=== PATIENT | female | born 1980 | race Caucasian/White ===

== ENCOUNTER 2019-09-03 11:40 | Outpatient (CLI) | payer BC, SELFPAY ==
[2019-09-03 13:46] LABS: Hepatitis B Surface Antigen Negative (Negative)
[2019-09-03 13:52] LABS: HAV RESULT Negative (Negative); Hepatitis B Core IgM Result Negative (Negative)
[2019-09-03 14:03] LABS: Hepatitis C Virus Antibody Negative (Negative)
== END 2019-09-03 11:41 | disposition home or self-care (01) ==
LOC: ANHLAB 11:41
PROVIDERS: PCP Family Medicine; Visit Provider Family Medicine
DX: R94.5 Abnormal results of liver function studies (principal)
CPT/HCPCS: 36415; 80074

== ENCOUNTER 2020-02-17 14:44 | Emergency (ER) | payer BC, SELFPAY ==
--- NOTE | ~2020-02-17 | CT_ITS ---
EXAMINATION: CT abdomen pelvis w con INDICATION: Right lower quadrant pain TECHNIQUE: Computed tomographic images of the abdomen and pelvis were obtained after the administrati on of 100 cc of Omnipaque 350 intravenous contrast. The dose-length product (DLP) was 1273.06 mGy-cm. Automated exposure control and iterative reconstruction technique were employed. COMPARISON: 12/11/2014 FINDINGS: Minimal dependent atelectasis is present in the lung bases. The heart size is normal. The g allbladder is surgically absent. There is mild enlargement of the common bile duct and central intrah epatic ducts which is likely due to post cholecystectomy state. Nonobstructing stones of the left kid [place] measure up to 3 mm. The right kidney is unremarkable. No pathologically enlarged abdominal or pel apple lymph nodes are identified. There is no free intraperitoneal gas or evidence of bowel obstruction . The appendix is normal. There are changes of supracervical hysterectomy. There is mild lumbar spond ylosis. IMPRESSION: 1. No CT correlate for the patient's symptoms. Reviewed, dictated and finalized at location A. [facility]
[2020-02-17 15:16] VITALS: BP 125/82; PULSE 83; RESP 16; TEMP 36.2; O2SAT 97
[2020-02-17 15:26] LABS: Basophils Percent Auto 0.5 % (0.2-1.2); Eosinophils Absolute Auto 0.1 K/mm3 (0-0.3); Eosinophils Percent Auto 1.1 % (0-4.4); Hematocrit 38.4 % (37.0-47.0); Hemoglobin 12.8 g/dL (12.0-15.0); Immature Granulocyte Absolute 0.01 K/mm3 (0.00-0.031); Immature Granulocyte Percent A 0.2 % (0-0.5); Lymphocytes Absolute Auto 2.03 K/mm3 (0.9-3.2); Lymphocytes Percent Auto 31.9 % (18.3-44.2); Mean Corpuscular HGB Conc 33.3 g/dl (32-36); Mean Corpuscular Hemoglobin 29.6 pg (26-34); Mean Corpuscular Volume 88.7 fl (80-100); Mean Platelet Volume 10.3 fl (7.4-10.4); Monocytes Absolute Auto 0.4 K/mm3 (0.1-0.6); Neutrophils Absolute Auto 3.8 K/mm3 (1.3-6.7); Neutrophils Percent Auto 60.3 % (45.5-73.1); Platelet Count Result 216 k/mm3 (150-375); Red Blood Count 4.33 M/mm3 (4.2-5.4); Red Cell Distribution Width 12.5 % (11.5-14.5); White Blood Count 6.4 K/mm3 (4.5-10.0)
[2020-02-17 15:49] LABS: Alanine Aminotransferase 24 U/L (4-35); Alkaline Phosphatase 72 U/L (38-126); Anion Gap 4 mmol/L (8-16); Aspartate Amino Transferase 33 U/L (14-36); Bilirubin,Total 0.4 mg/dL (0.2-1.3); Blood Urea Nitrogen 11 mg/dL (7-17); Calcium 9.4 mg/dL (8.4-10.2); Carbon Dioxide 29 mmol/L (22-30); Chloride 107 mmol/L (98-107); Estimated CRCL calculation 89 ml/min; Estimated Glomerular Filt Rate > 60; Glucose 108 mg/dL (65-105); Lipase 49 U/L (23-300); Potassium 3.8 mmol/L (3.4-5.0); Sodium 140 mmol/L (137-145)
--- NOTE | 2020-02-17 16:15 | ED.ABDPAIN ---
HPI - Abdominal Pain General Chief Complaint: Abdominal Pain Stated Complaint: lower abd pain Time Seen by Provider: 02/17/20 16:15 Source: patient Mode of arrival: ambulatory Limitations: no limitations History of Present Illness HPI narrative: Patient is a 39-year-old who presents to the emergency department for evaluation of lower abdominal pain. Pain is intermittently sharp, more constant in nature mostly in the right lower quadrant. There is some associated right-sided flank pain. She has had associated nausea without vomiting. She had diarrhea yesterday. No blood or mucus present in the stool. No dysuria or hematuria. No fever, chills, cough or chest pain. Patient initially thought the pain might be attributed to gas type pain, but due to increased severity, being more constant since overnight, patient wanted to seek care in the emergency department. Patient with history of multiple abdominal surgeries including multiple laparoscopies for endometriosis, partial hysterectomy, cholecystectomy. No history of bowel obstruction. Related Data Home Medications Medication Instructions Recorded Confirmed cyanocobalamin (vitamin B-12) 2,500 mcg PO DAILY 04/08/19 08/06/19 2,500 mcg tablet aripiprazole 2 mg tablet 4 mg PO DAILY tablet 11/12/19 atorvastatin 20 mg tablet 40 mg PO DAILY tablet 11/12/19 sertraline 25 mg tablet 125 mg PO DAILY tablet 11/12/19 Allergies Allergy/AdvReac Type Severity Reaction Status Date / Time No Known Allergies Allergy Verified 02/17/20 16:11 Review of Systems Review of Systems: Narrative: CONSTITUTIONAL: Denies fever, chills, or sweats. CARDIOVASCULAR: Denies chest pain, palpitations, or edema. RESPIRATORY: Denies cough or dyspnea. GASTROINTESTINAL: Reports lower abdominal pain, nausea without vomiting, reports diarrhea GENITOURINARY: Denies dysuria or hematuria. SKIN: Denies rash or itching. MUSCULOSKELETAL: Denies back pain, joint pain, or myalgia. NEUROLOGIC: Denies headache, numbness, or weakness. [facility] Past Medical History Medical History (Updated 02/17/20 @ 18:13 by Natalia Mart MD) Cholecystectomy planned Class 2 obesity with body mass index (BMI) of 36.0 to 36.9 in adult Depression with anxiety (~1988) History of frequent headaches (~2006) History of miscarriage (~2011) HTN (hypertension) (~2017) Hyperlipidemia LDL goal <100 Sleep apnea (~2015) mild Surgical History Surgical History (Updated 02/17/20 @ 16:27 by Natalia Mart MD) H/O dilation and curettage History of delivery (~2006) History of partial hysterectomy Hx of cholecystectomy Family History Family History Mother Hypertension Breast cancer Hypercholesterolemia Other Breast cancer Other Family history of malignant neoplasm of breast Social History Social History Smoking status: Former smoker Tobacco type: cigarettes Smoking end date: 03/12/10 Alcohol intake: current Substance use: current Substance use type: marijuana, crack/cocaine and hallucinogens Gender identity (if verbalized by the patient): Female Exam Narrative: Exam Narrative: GENERAL: Awake, alert, conversant HEAD: Normocephalic, atraumatic. EYES: PERRLA and EOMI. ENT: Nares clear, no rhinorrhea or epistaxis. Mucous membranes moist. NECK: Supple. CHEST: No respiratory distress, breathing even and non labored HEART: Regular rate, sinus rhythm ABDOMEN:Non distended, no rebound, nonrigid, no guarding, tender in the right lower quadrant, suprapubic area EXTREMITIES: Normal range of motion. No edema. SKIN: Warm, dry, no rash. NEURO:No focal deficits. Alert and oriented x3 Course Vital Signs Vital signs: Vital Signs Temperature 36.2 C L 02/17/20 15:16 Pulse Rate 83 02/17/20 15:16 Respiratory Rate 16 02/17/20 15:16 Blood Pressure 125/82 02/17/20 15:16 Pulse Oximetr
[2020-02-17 16:31] LABS: Add Urine Microscopic? YES; Appearance Urine Clear (Clear); Bilirubin Urine Negative (Negative); Blood Urine Negative (Negative); Color Urine Yellow (Yellow); Glucose Urine UA Negative (Negative); Ketones Urine Negative (Negative); Leukocyte Esterase Ur Negative LEU/UL (Negative); Mucus Urine Rare /lpf; Nitrate Urine Negative (Negative); Protein Urine Negative (Negative); RBC Urine 0-2 /hpf (0-2); Specific Grav Ur 1.021 (1.001-1.035); Squamous Epithelial Cell Urine Occasional /hpf (Few); WBC Urine 0-3 /hpf
[2020-02-17] MEDS: SODIUM CHLORIDE 0.9% IV 1,000 ML 999 ML IV CONT (16:41)
[2020-02-17] MEDS: ONDANSETRON INJ 4 MG/2 ML VIAL IV PUSH (16:42)
[2020-02-17] MEDS: MORPHINE SULFATE (*CRX) 2 MG/ML INJ IV PUSH (16:44)
== END 2020-02-17 18:59 | disposition home or self-care (01) ==
PROVIDERS: Emergency Medicine; Emergency Provider Emergency Medicine
DX: R10.31 Right lower quadrant pain (principal); E66.9 Obesity, unspecified; Z68.36 Body mass index [BMI] 36.0-36.9, adult; F41.8 Other specified anxiety disorders; E78.5 Hyperlipidemia, unspecified; I10 Essential (primary) hypertension; G47.30 Sleep apnea, unspecified; Z87.891 Personal history of nicotine dependence
CPT/HCPCS: 36415; 74177; 80053; 81001; 83690; 85025; 96361; 96365; 96375; 99284; J0131; J2270; J2405; J7030; Q9967